=== PATIENT | female | born 1995 | race African-American/Black ===

== ENCOUNTER 2023-03-16 05:10 | Day surgery (SDC) | payer OTHER ==
[2023-03-12 14:51] VITALS: BMI 25.6
[2023-03-16] MEDS ORDERED: LIDOCAINE HCL 1%, 10 MG/ML (10ML VIAL) MDV ONE (07:17)
[2023-03-16] MEDS ORDERED: BUPIVACAINE HCL/PF 0.5% (5MG/ML) 10 ML VIAL ONE (07:18)
[2023-03-16] MEDS ORDERED: MIDAZOLAM HCL 2 MG/2 ML SINGLE DOSE VIAL ONE (08:11)
[2023-03-16] MEDS ORDERED: ceFAZolin SODIUM 1 GM VIAL IVPB ONE (08:23)
[2023-03-16] MEDS ORDERED: METHYLENE BLUE 50 MG/10 ML AMPUL ONE (08:26)
[2023-03-16] MEDS ORDERED: METHYLENE BLUE 1% 10 MG/1 ML VIAL NR ONE (08:40)
[2023-03-16] MEDS ORDERED: oxyCODONE HCL 5 MG TABLET PO PRN (09:11)
[2023-03-16] MEDS ORDERED: ONDANSETRON 4 MG/2 ML VIAL IVPUSH PRN (09:11)
[2023-03-16] MEDS ORDERED: LACTATED RINGERS SOLUTION 1,000 ML IV SCH (09:15)
[2023-03-16] MEDS ORDERED: oxyCODONE HCL 5 MG TABLET ONE (11:12)
[2023-03-16] MEDS ORDERED: oxyCODONE HCL 5 MG TABLET PO ONE (11:15)
[2023-03-16 11:34] VITALS: RESP 16
[2023-03-16 19:56] VITALS: BP 105/64; PULSE 66; TEMP 98.2
== END 2023-03-16 15:05 | disposition home or self-care (01) ==
LOC: JASU-SURG 05:10
PROVIDERS: ATTEND Surgery
PROC: 0JB90ZZ Excision of Buttock Subcutaneous Tissue and Fascia, Open Approach (ICD-10-PCS; principal; 2023-03-16 08:00)
DX: L05.92 Pilonidal sinus without abscess (principal); L05.91 Pilonidal cyst without abscess
CPT/HCPCS: 81025; 88304-TC; 94760; Q9968